=== PATIENT | male | born 1970 | race Caucasian/White ===

== ENCOUNTER 2021-12-03 05:18 | Emergency (ER) | payer OTHER ==
[~2021-12-03] VITALS: Ht 195.6 cm; Wt 136.1 kg
[2021-12-03] MEDS ORDERED: ALDACTONE25 MG (05:30)
[2021-12-03] MEDS ORDERED: BUMETANIDE1 MG PO (05:30)
[2021-12-03] MEDS ORDERED: ELIQUIS5 MG PO (05:30)
[2021-12-03] MEDS ORDERED: ONDANSETRON ODT8 MG PO (06:26)
[2021-12-03] MEDS ORDERED: HYDROCODON-ACE1 EA10 PO (06:26)
== END 2021-12-03 06:39 | disposition home or self-care (01) ==
LOC: ED 05:18
DX: S06.0X1A Concussion with loss of consciousness of 30 minutes or less, initial encounter (principal); W22.8XXA Striking against or struck by other objects, initial encounter; I48.91 Unspecified atrial fibrillation; Z79.899 Other long term (current) drug therapy
CPT/HCPCS: 70450; 96374; 96375; 99284-25; A9270; J1170; J2405